=== PATIENT | male | born 1965 | race Caucasian/White ===

== ENCOUNTER 2017-08-27 19:04 | Emergency (ER) | payer BC ==
[2017-08-27 19:27] VITALS: RESP 18
[2017-08-27] MEDS ORDERED: SODIUM CHLORIDE 0.9% 1,000 ML IV STA (20:04)
--- NOTE | 2017-08-27 20:04 | ED ---
Abdominal Pain HPI - General Chief Complaint: Abdominal Pain Stated Complaint: Abd Pain Lap Band Time Seen by Provider: 08/27/17 19:38 Source: patient Mode of arrival: ambulatory Limitations: no limitations - History of Present Illness Initial Comments: [age] years old male comes in with the complaint that he feels a hot dog is stuck in his epigastric area, is status post lap banding back in [address] Vazquez performed the procedure this happened around 3:30 today he said he vomited 4 times denies any diarrhea denies any shortness of breath he is not drooling is able to swallow his saliva. No headaches no neck stiffness no chest pain or shortness of breath no abdominal pain he does feel something is stuck there - Related Data Allergies Allergy/AdvReac Type Severity Reaction Status Date / Time No Known Allergies Allergy Verified 08/27/17 19:24 Review of Systems ROS Statement: Those systems with pertinent positive or pertinent negative responses have been documented in the HPI. ROS Other: All systems not noted in ROS Statement are negative. Past Medical History Additional Past Medical History / Comment(s): tachycardia History of Any Multi-Drug Resistant Organisms: None Reported Past Surgical History: Appendectomy, Hernia Repair Additional Past Surgical History / Comment(s): lap band Past Psychological History: No Psychological Hx Reported Smoking Status: Current every day smoker Past Alcohol Use History: None Reported Past Drug Use History: None Reported General Exam - General Exam Comments Initial Comments: General: The patient is awake and alert, in no distress, and does not appear acutely ill. Skin: Skin is warm and dry and no rashes or lesions are noted. Eye: Pupils are equal, round and reactive to light, extra-ocular movements are intact; there is normal conjunctiva bilaterally. Ears, nose, mouth and throat: There are moist mucous membranes and no oral lesions. Neck: The neck is supple, there is no tenderness or JVD. Cardiovascular: There is a regular rate and rhythm. No murmur, rub or gallop is appreciated. Respiratory: To auscultation bilateral, no wheezing no rhonchi no distress respiratory wong noticed Gastrointestinal: Soft, non-distended, non-tender abdomen without masses or organomegaly noted. There is no rebound or guarding present. Bowel sounds are unremarkable. Back: There is no tenderness to palpation in the midline. There is no obvious deformity. Musculoskeletal: Normal ROM, no tenderness, There is no pedal edema. There is no calf tenderness or swelling. No cords were appreciated. Neurological: CN II-XII intact, Cranial nerves III through XII are intact. There are no obvious motor or sensory deficits. Coordination appears grossly intact. Speech is normal. Psychiatric: Cooperative, appropriate mood & affect, normal judgment. Limitations: no limitations Course Vital Signs 08/27/17 19:24 Temperature 97.5 F L Pulse Rate 73 Respiratory 18 Rate Blood Pressure 146/80 O2 Sat by Pulse 95 Oximetry I was able to get older Dr. Fajardo and Dr. Vazquez advised me to get some saline out Of the port or admit him to the hospital he his serum in the morning in the meantime patient felt that the food bolus passed he feels lot comfortable he was to go home. In the [address] Fajardo as a follow-up over the next one or 2 days. I'm agreeable with that he was advised to come back if symptoms get worse even tonight if he feels better and regardless she needs to see Dr. Fajardo or the next one or 2 days he coming to the Medical Decision Making - Lab Data Result diagrams: 08/27/17 20:13 08/27/17 20:13 Lab Results 08/27/17 08/27/17 Range/Units 20:13 20:13 WBC 8.1 (3.8-10.6) k/uL RBC 5.37 (4.30-5.90) m/uL Hgb 15.8 (13.0-17.5) gm/dL Hct 46.2 (39.0-53.0) % MCV 86.1 (80.0-100.0) fL MCH 29.5 (25.0-35.0) pg MCHC 34.3 (31.0-37.0) g/dL RDW 13.9 (11.5-15.5) % Plt Count 218 (150-450) k/uL Neutrophils % 64 % Lymphocytes % 25 % Monocytes % 6 % Eosinophils % 3 % Basophils % 0 % Neutrophils # 5.1 (1.3-7.7) k/uL Lymphocytes # 2.0 (1.0-4.8) k/uL Monocytes # 0.5 (0-1.0) k/uL Eosinophils # 0.2 (0-0.7) k/uL Basophils # 0.0 (0-0.2) k/uL Sodium 138 (137-145) mmol/L Potassium 4.7 (3.5-5.1) mmol/L Chloride 107 (98-107) mmol/L Carbon Dioxide 20 L (22-30) mmol/L Anion Gap 11 mmol/L BUN 12 (9-20) mg/dL Creatinine 0.66 (0.66-1.25) mg/dL Est GFR (CKD-EPI)AfAm >90 (>60 ml/min/1.73 sqM) Est GFR (CKD-EPI)NonAf >90 (>60 ml/min/1.73 sqM) Glucose 92 (74-99) mg/dL Calcium 9.1 (8.4-10.2) mg/dL Total Bilirubin 0.6 (0.2-1.3) mg/dL AST 19 (17-59) U/L ALT 28 (21-72) U/L Alkaline Phosphatase 57 (38-126) U/L Total Protein 6.7 (6.3-8.2) g/dL Albumin 4.0 (3.5-5.0) g/dL Amylase 59 (30-110) U/L Lipase 40 (23-300) U/L Disposition Clinical Impression: Abdominal pain Disposition: HOME SELF-CARE Condition: Good Instructions: Abdominal Pain (ED) Is patient prescribed a controlled substance at d/c from ED?: No Referrals: Álvaro Merrill MD [Primary Care Provider] - 1-2 days
[2017-08-27] MEDS ORDERED: DIAZEPAM 5 MG/ML 2 ML INJ IVP STA (20:32)
[2017-08-27] MEDS ORDERED: GLUCAGON 1 MG/ML VIAL IVP STA (20:32)
[2017-08-27 20:33] LABS: Basophils % (A) 0 %; Eosinophils # (A) 0.2 k/uL (0-0.7); Eosinophils % (A) 3 %; HCT 46.2 % (39.0-53.0); HGB 15.8 gm/dL (13.0-17.5); Lymphocytes % (A) 25 %; MCH 29.5 pg (25.0-35.0); MCHC 34.3 g/dL (31.0-37.0); MCV 86.1 fL (80.0-100.0); Mean Platelet Volume 7.6; Monocytes # (A) 0.5 k/uL (0-1.0); Monocytes % (A) 6 %; Neutrophils # (A) 5.1 k/uL (1.3-7.7); Neutrophils % (A) 64 %; Platelet Count 218 k/uL (150-450); RBC 5.37 m/uL (4.30-5.90); RDW 13.9 % (11.5-15.5); WBC 8.1 k/uL (3.8-10.6)
[2017-08-27 20:39] LABS: ALT 28 U/L (21-72); AST 19 U/L (17-59); Alkaline Phosphatase 57 U/L (38-126); Amylase 59 U/L (30-110); Anion Gap 11 mmol/L; Blood Urea Nitrogen 12 mg/dL (9-20); Calcium 9.1 mg/dL (8.4-10.2); Carbon Dioxide 20 mmol/L (22-30); Chloride 107 mmol/L (98-107); Glucose 92 mg/dL (74-99); Lipase 40 U/L (23-300); Potassium 4.7 mmol/L (3.5-5.1); Sodium 138 mmol/L (137-145); Total Bilirubin 0.6 mg/dL (0.2-1.3); Total Protein 6.7 g/dL (6.3-8.2)
[2017-08-27 20:58] VITALS: BP 142/80; PULSE 80; TEMP 98
== END 2017-08-27 20:58 | disposition home or self-care (01) ==
LOC: EC 19:04
DX: R10.9 Unspecified abdominal pain (principal); F17.200 Nicotine dependence, unspecified, uncomplicated; Z90.49 Acquired absence of other specified parts of digestive tract
CPT/HCPCS: 36415; 80053; 82150; 83690; 85025; 99284

== ENCOUNTER → 2021-04-19 | Outpatient (CLI) | payer OTHER ==
[2021-04-19 14:23] VITALS: BP 144/89; PULSE 112; RESP 20; TEMP 97.9; BMI 50.1
--- NOTE | 2021-04-19 14:51 | P.HPBAR ---
Bariatric H&P - History & Physicial H&P Date: 04/19/21 History & Physicial: Visit/CC: follow up Patient initial contact: Initial weight: Initial weight in pounds: Height: 5 ft 8 in Initial BMI: Last weight: Current weight: 149.685 kg Current weight in pounds: 330.00 Current BMI: 50.1 [place] body weight (based on NIH guidelines): 69.853 kg Excess body weight loss: The patient is a 55 year-old M who presents for Bariatric Assessment. Patient presents today for bridge follow. She's not been seen in many years. His current weight is 330 pounds. He recently had his LAP-BAND emptied due to dysphagia. He is interested in converting to a sleeve gastrectomy. Past Medical History Additional Past Medical History / Comment(s): tachycardia History of Any Multi-Drug Resistant Organisms: None Reported Past Surgical History: Appendectomy, Hernia Repair Additional Past Surgical History / Comment(s): lap band. hernia repair X2. Past Anesthesia/Blood Transfusion Reactions: No Reported Reaction Past Psychological History: No Psychological Hx Reported Smoking Status: Current some day smoker Past Alcohol Use History: None Reported Past Drug Use History: None Reported Surgical - Exam Vital Signs Temp Pulse Resp BP 97.9 F 112 H 20 144/89 04/19/21 14:16 04/19/21 14:16 04/19/21 14:16 04/19/21 14:16 - General well developed, well nourished, no distress - Eyes PERRL - ENT normal pinna - Neck no masses - Respiratory normal expansion - Cardiovascular Rhythm: regular - Abdomen Abdomen: soft, non tender Bariatric Assessment & Plan Plan: GERD and dysphagia with LAP-BAND. Patient will undergo EGD. I did discuss on the pros and cons of sleeve gastrectomy. He'll follow-up in the office after his EGD is performed. Bariatric Checklist Checklist: Plan: Checklist: EGD: 1. Hiatal hernia: 2. H. Pylori: HgbA1c: Vitamin D: Smoking: Current every day smoker Primary care physician referral: Dr. De La Cruz ([facility]) Psychiatry clearance: Cardiology clearance: Sleep study: Diet journal: VTE risk score: VTE risk level: Rehab needs at discharge:
== END | disposition home or self-care (01) ==
LOC: BARWHC3 13:58
PROVIDERS: ATTEND Surgery
DX: E66.01 Morbid (severe) obesity due to excess calories (principal); Z68.43 Body mass index [BMI] 50.0-59.9, adult
CPT/HCPCS: 99203

== ENCOUNTER → 2021-04-19 | Outpatient (CLI) | payer OTHER ==
--- NOTE | 2021-04-19 12:21 | FL ---
SINGLE CONTRAST BARIUM SWALLOW: CLINICAL HISTORY: 55-year-old male R13.10, dysphagia. Lap band emptied a few days ago with improveme nt in symptoms. TECHNIQUE: Single contrast exam performed with thin barium. Total fluoroscopy time: 22 seconds. Total images: 10. FINDINGS: Initial image shows satisfactory positioning of the lap band device. The patient swallowed oral contr ast without difficulty or delay. Esophageal peristalsis and motility are within normal limits. [place] roscopic banding device is noted to be in place and is appropriately positioned in proximal stomach, just below Gastroesophageal junction. There is good flow of contrast along the course of the lap ba nd without any significant restriction. IMPRESSION: No evidence for lap band prolapse or obstruction. No significant restriction across the lap band.
== END | disposition home or self-care (01) ==
LOC: RADUSWWP 11:10
PROVIDERS: ATTEND Surgery
DX: R13.10 Dysphagia, unspecified (principal)
CPT/HCPCS: 74220

== ENCOUNTER → 2021-10-25 | Outpatient (CLI) | payer OTHER ==
[2021-10-25 14:46] VITALS: BP 173/82; RESP 102; TEMP 97.7; BMI 55.2
--- NOTE | 2021-10-25 15:38 | P.HPBAR ---
Bariatric H&P - History & Physicial H&P Date: 10/25/21 History & Physicial: Visit/CC: lap band follow up Patient initial contact: Initial weight: Initial weight in pounds: Height: 5 ft 8 in Initial BMI: Last weight: Current weight: 164.654 kg Current weight in pounds: 363.00 Current BMI: 55.2 [place] body weight (based on NIH guidelines): 69.853 kg Excess body weight loss: The patient is a 56 year-old M who presents for Bariatric Assessment. Patient presents today for LAP-BAND adjustment. His cane 45 pounds last visit. Past Medical History Additional Past Medical History / Comment(s): tachycardia History of Any Multi-Drug Resistant Organisms: None Reported Past Surgical History: Appendectomy, Hernia Repair Additional Past Surgical History / Comment(s): lap band. hernia repair X2. Past Anesthesia/Blood Transfusion Reactions: No Reported Reaction Past Psychological History: No Psychological Hx Reported Smoking Status: Current some day smoker Past Alcohol Use History: None Reported Past Drug Use History: None Reported Surgical - Exam Vital Signs Temp Resp BP 97.7 F 102 H 173/82 10/25/21 14:41 10/25/21 14:41 10/25/21 14:41 - General well developed, well nourished, no distress - Eyes PERRL - ENT normal pinna - Neck no masses - Respiratory normal expansion - Cardiovascular Rhythm: regular - Abdomen Abdomen: soft, non tender Bariatric Assessment & Plan Plan: RBC. Patient's LAP-BAND was attempted to be adjusted. His port could not be accessed due to rotation the port. Patient was scheduled for revision of LAP- BAND port. Bariatric Checklist Checklist: Plan: Checklist: EGD: 1. Hiatal hernia: 2. H. Pylori: HgbA1c: Vitamin D: Smoking: Current every day smoker Primary care physician referral: Dr. De La Cruz ([facility]) Psychiatry clearance: Cardiology clearance: Sleep study: Diet journal: VTE risk score: VTE risk level: Rehab needs at discharge:
== END ==
LOC: BARWHC3 13:41
PROVIDERS: ATTEND Surgery
DX: Z46.51 Encounter for fitting and adjustment of gastric lap band (principal); F17.200 Nicotine dependence, unspecified, uncomplicated
CPT/HCPCS: 99213

== ENCOUNTER 2021-11-29 08:11 | Day surgery (SDC) | payer OTHER ==
[2021-11-25 15:39] VITALS: BMI 53.1
[~2021-11-29 08:11] MED LIST: DEXAMETHASONE SOD PHOSPHATE 4 MG/ML 1 ML VIAL IV ONE; HYDROmorphone 0.5 MG/0.5 ML SYRINGE IVP PRN; LACTATED RINGERS 1,000 ML IV SCH; ONDANSETRON 4 MG/2 ML VIAL IVP ONE; ceFAZolin 3 GM in SODIUM CHLORIDE 0.9% 100 ML IVPB PRN
[2021-11-29 09:05] LABS: Glucose,Whole Blood 104 mg/dL (70-110)
[2021-11-29 09:07] VITALS: RESP 16
--- NOTE | 2021-11-29 10:02 | P.GSHP ---
History of Present Illness H&P Date: 11/29/21 Chief Complaint: LAP-BAND port malfunction This a 56-year-old male who presents today for laparoscopic removal and replacement of LAP-BAND port. Patient has a port which is malfunctioning and is unable to be accessed. Past Medical History Past Medical History: Osteoarthritis (OA), Sleep Apnea/CPAP/BIPAP Additional Past Medical History / Comment(s): tachycardia,uses cpap,steroid injection September 2021 History of Any Multi-Drug Resistant Organisms: None Reported Past Surgical History: Appendectomy, Hernia Repair Additional Past Surgical History / Comment(s): lap band. hernia repair X2. Past Anesthesia/Blood Transfusion Reactions: No Reported Reaction Additional Past Anesthesia/Blood Transfusion Reaction / Comment(s): no hx blood transfusion Smoking Status: Former smoker - Past Family History Mother Family Medical History: No Reported History Brother(s) Family Medical History: Deep Vein Thrombosis (DVT) Medications and Allergies Home Medications Medication Instructions Recorded Confirmed Type Cholecalciferol (Vitamin D3) 100 mcg PO DAILY 04/19/21 11/29/21 History [Vitamin D3 (125 MCG = 5,000 IU)] Diclofenac Sodium [Voltaren 1 applic TOPICAL DIRECTED PRN 04/19/21 11/29/21 History Arthritis Pain 1% Gel] Gabapentin [Neurontin] 300 mg PO HS 04/19/21 11/29/21 History HYDROcodone/APAP 7.5-325MG [[place] 1 tab PO Q6HR PRN 04/19/21 11/29/21 History 7.5-325] Metoprolol Succinate [Toprol XL] 25 mg PO QAM 04/19/21 11/29/21 History Multivitamins, Thera [Multivitamin 1 tab PO DAILY 04/19/21 11/29/21 History (formulary)] Piroxicam 20 mg PO DAILY 04/19/21 11/29/21 History Oxybutynin ER [Ditropan Xl] 10 mg PO HS 11/25/21 11/29/21 History Allergies Allergy/AdvReac Type Severity Reaction Status Date / Time No Known Allergies Allergy Verified 11/29/21 09:08 Surgical - Exam Vital Signs Temp Pulse Resp BP Pulse Ox 97.6 F 86 16 154/86 96 11/29/21 08:57 11/29/21 08:57 11/29/21 08:57 11/29/21 08:57 11/29/21 08:57 - General well developed, well nourished, no distress - Eyes PERRL - ENT normal pinna - Neck no masses - Respiratory normal expansion - Cardiovascular Rhythm: regular - Abdomen Abdomen: soft, non tender Assessment and Plan Assessment: Morbid obesity, BMI 57 LAP-BAND port malfunction We'll perform laparoscopic removal and replacement of LAP-BAND port
[2021-11-29] MEDS ORDERED: GLYCOPYRROLATE 0.2 MG/ML 2 ML VIAL ONE (10:24)
[2021-11-29] MEDS ORDERED: ROCURONIUM 10 MG/ML (5 ML VIAL) IV ONE (10:24)
[2021-11-29] MEDS ORDERED: PROPOFOL 10 MG/ML 20 ML VIAL IV ONE (10:24)
[2021-11-29] MEDS ORDERED: LIDOCAINE 2% INJ 20 MG/ML (2 ML VIAL) ONE (10:24)
[2021-11-29] MEDS ORDERED: SUCCINYLCHOLINE CHLORIDE 200 MG/10 ML VIAL IV ONE (10:24)
[2021-11-29] MEDS ORDERED: MIDAZOLAM 2 MG/2 ML VIAL ONE (10:24)
[2021-11-29] MEDS ORDERED: NEOSTIGMINE 1 MG/ML 10 ML VIAL ONE (10:24)
[2021-11-29] MEDS ORDERED: fentaNYL (PF) 50 MCG/ML 2 ML AMP ONE (10:24)
[2021-11-29] MEDS ORDERED: BUPIVACAIN-EPI 0.25%-1:200,000 30 ML VIAL SQ ONE (11:06)
--- NOTE | 2021-11-29 11:30 | P.OP ---
Date of Procedure: 11/29/21 Preoperative Diagnosis: LAP-BAND port malfunction Postoperative Diagnosis: LAP-BAND port malfunction Procedure(s) Performed: Laparoscopic removal and replacement of LAP-BAND port Anesthesia: RACHEL Surgeon: Hitesh Hardin Estimated Blood Loss (ml): 5 Pathology: none sent Condition: stable Disposition: PACU Description of Procedure: The patient's placed on the operative table in the supine position. He received general endotracheal tube anesthesia. His abdomen was prepped and draped usual sterile fashion. The skin incision sites anesthetized with 1% local Xylocaine. The skin at the port site was incised and using blunt and sharp dissection with cautery the LAP-BAND port was dissected free from some taste tissues. The PEG tube was then cut. The LAP-BAND port was sent to pathology. Using a 5 mm optical trocar under direct visualization the. Cavity was entered. The abdomen was insufflated. After adequate insufflation a 10 mm trochars placed in the right epigastric area the PEG tube was then brought up in the temporal trocar site. The trochars withdrawn. LAP-BAND port was cut to the LAP-BAND PEG tube. The port was secured to the fascia using 0 Nurolon suture. 3 sutures were used to fixate the port. Once the port was fixated the port was flushed with saline. 3 mL of saline was instilled into the LAP-BAND system. There is no bleeding seen. Skin incision sites were closed with 3-0 Monocryl suture. Dermabond was applied. Patient top she will was sent to recovery room in stable condition.
[2021-11-29 11:34] VITALS: TEMP 97.8
[2021-11-29 12:37] VITALS: BP 147/84; PULSE 85
== END 2021-11-29 12:57 | disposition home or self-care (01) ==
LOC: OR 08:11
PROVIDERS: ATTEND Surgery
DX: T85.698A Other mechanical complication of other specified internal prosthetic devices, implants and grafts, initial encounter (principal); M19.90 Unspecified osteoarthritis, unspecified site; G47.33 Obstructive sleep apnea (adult) (pediatric); R00.0 Tachycardia, unspecified; Z99.89 Dependence on other enabling machines and devices; Z90.89 Acquired absence of other organs; Z98.890 Other specified postprocedural states; Z87.891 Personal history of nicotine dependence; Z83.2 Family history of diseases of the blood and blood-forming organs and certain disorders involving the immune mechanism; Z79.899 Other long term (current) drug therapy
CPT/HCPCS: 43773; C1751; J2250; J0330; J1100; J2710; J0690; J2405; J3010; J2704; J2001

== ENCOUNTER → 2021-12-13 | Outpatient (CLI) | payer OTHER ==
[2021-12-14 08:55] VITALS: BP 139/83; PULSE 82; TEMP 98.2; BMI 52.1
--- NOTE | 2021-12-28 12:29 | P.HPBAR ---
Bariatric H&P - History & Physicial H&P Date: 12/13/21 History & Physicial: Visit/CC: lap band follow up Patient initial contact: Initial weight: Initial weight in pounds: Height: 5 ft 8 in Initial BMI: Last weight: Current weight: 155.582 kg Current weight in pounds: 343.00 Current BMI: 52.1 [place] body weight (based on NIH guidelines): 69.853 kg Excess body weight loss: The patient is a 56 year-old M who presents for Bariatric Assessment. Patient resents today for LAP-BAND follow-up. He has lost presents weight in pounds since last visit. He is on minimal GERD. Past Medical History Past Medical History: Osteoarthritis (OA), Sleep Apnea/CPAP/BIPAP Additional Past Medical History / Comment(s): tachycardia,uses cpap,steroid injection September 2021 History of Any Multi-Drug Resistant Organisms: None Reported Past Surgical History: Appendectomy, Hernia Repair Additional Past Surgical History / Comment(s): lap band. hernia repair X2. lap band port replacement 11-29-21 Past Anesthesia/Blood Transfusion Reactions: No Reported Reaction Additional Past Anesthesia/Blood Transfusion Reaction / Comm: no hx blood transfusion Past Psychological History: No Psychological Hx Reported Smoking Status: Former smoker Past Alcohol Use History: None Reported Additional Past Alcohol Use History / Comment(s): quit smoking yrs ago, started smoking at age 11 Past Drug Use History: None Reported - Past Family History Mother Family Medical History: No Reported History Brother(s) Family Medical History: Deep Vein Thrombosis (DVT) Surgical - Exam Vital Signs Temp Pulse BP 98.2 F 82 139/83 12/13/21 14:41 12/13/21 14:41 12/13/21 14:41 - General well developed, no distress - Eyes PERRL - ENT normal pinna - Neck no masses - Respiratory normal expansion - Cardiovascular Rhythm: regular - Abdomen Abdomen: soft, non tender Bariatric Assessment & Plan Plan: Patient's GERD is minimal elevated observed. His weight loss has been excellent for the last month. Bariatric Checklist Checklist: Plan: Checklist: EGD: 1. Hiatal hernia: 2. H. Pylori: HgbA1c: Vitamin D: Smoking: Current every day smoker Primary care physician referral: Dr. De La Cruz ([facility] Psychiatry clearance: Cardiology clearance: Sleep study: Diet journal: VTE risk score: VTE risk level: Rehab needs at discharge:
== END | disposition home or self-care (01) ==
LOC: BARWHC3 14:17
PROVIDERS: ATTEND Surgery
DX: Z48.815 Encounter for surgical aftercare following surgery on the digestive system (principal); K21.9 Gastro-esophageal reflux disease without esophagitis
CPT/HCPCS: 99211

== ENCOUNTER → 2022-01-17 | Outpatient (CLI) | payer OTHER ==
[2022-01-17 14:11] VITALS: BP 161/84; PULSE 110; RESP 16; TEMP 98.3; BMI 55.3
--- NOTE | 2022-02-14 13:21 | P.HPBAR ---
Bariatric H&P - History & Physicial H&P Date: 01/17/22 History & Physicial: Visit/CC: band port f/u Patient initial contact: Initial weight: 199.581 kg Initial weight in pounds: 440.00 Height: 5 ft 8 in Initial BMI: 66.9 Last weight: Current weight: 165.108 kg Current weight in pounds: 364.00 Current BMI: 55.3 [place] body weight (based on NIH guidelines): 69.853 kg Excess body weight loss: 26.5% The patient is a 56 year-old M who presents for Bariatric Assessment. Patient presents today for bariatric follow-up. He's had a new port replaced. Patient is morbidly obese. His BMI is 55. Past Medical History Past Medical History: Osteoarthritis (OA), Sleep Apnea/CPAP/BIPAP Additional Past Medical History / Comment(s): tachycardia,uses cpap,steroid injection September 2021 History of Any Multi-Drug Resistant Organisms: None Reported Past Surgical History: Appendectomy, Hernia Repair Additional Past Surgical History / Comment(s): lap band. hernia repair X2. lap band port replacement 11-29-21 Past Anesthesia/Blood Transfusion Reactions: No Reported Reaction Additional Past Anesthesia/Blood Transfusion Reaction / Comm: no hx blood transfusion Past Psychological History: No Psychological Hx Reported Smoking Status: Former smoker Past Alcohol Use History: None Reported Additional Past Alcohol Use History / Comment(s): quit smoking yrs ago, started smoking at age 11 Past Drug Use History: None Reported - Past Family History Mother Family Medical History: No Reported History Brother(s) Family Medical History: Deep Vein Thrombosis (DVT) Surgical - Exam Vital Signs Temp Pulse Resp BP 98.3 F 110 H 16 161/84 01/17/22 14:08 01/17/22 14:08 01/17/22 14:08 01/17/22 14:08 - General well developed, well nourished, no distress - Eyes PERRL - ENT normal pinna, normal nares - Neck no masses - Respiratory normal expansion - Cardiovascular Rhythm: regular - Abdomen Abdomen: soft, non tender Bariatric Assessment & Plan Plan: Status post LAP-BAND port placement. Patient's BMI is still very high. He will have his band adjusted once his port site heals. Bariatric Checklist Checklist: Plan: Checklist: EGD: 1. Hiatal hernia: 2. H. Pylori: HgbA1c: Vitamin D: Smoking: Current every day smoker Primary care physician referral: Dr. De La Cruz ([facility]) Psychiatry clearance: Cardiology clearance: Sleep study: Diet journal: VTE risk score: VTE risk level: Rehab needs at discharge:
== END ==
LOC: BARWHC3 13:35
PROVIDERS: ATTEND Surgery
DX: Z48.815 Encounter for surgical aftercare following surgery on the digestive system (principal); Z98.84 Bariatric surgery status; E66.01 Morbid (severe) obesity due to excess calories; Z68.43 Body mass index [BMI] 50.0-59.9, adult; F17.200 Nicotine dependence, unspecified, uncomplicated
CPT/HCPCS: 99211

== ENCOUNTER → 2022-02-14 | Outpatient (CLI) | payer OTHER ==
[2022-02-14 14:01] VITALS: BP 135/87; PULSE 111; TEMP 98.5; BMI 55.4
--- NOTE | 2022-02-14 14:22 | P.HPBAR ---
Bariatric H&P - History & Physicial H&P Date: 02/14/22 History & Physicial: Visit/CC: lap band F/U Patient initial contact: Initial weight: 199.581 kg Initial weight in pounds: 440.00 Height: 5 ft 8 in Initial BMI: 66.9 Last weight: Current weight: 165.289 kg Current weight in pounds: 364.40 Current BMI: 55.4 [place] body weight (based on NIH guidelines): 69.853 kg Excess body weight loss: 26.4% The patient is a 56 year-old M who presents for Bariatric Assessment. She is requesting a fill of his LAP-BAND. Currently feels hungry. Past Medical History Past Medical History: Osteoarthritis (OA), Sleep Apnea/CPAP/BIPAP Additional Past Medical History / Comment(s): tachycardia,uses cpap,steroid injection September 2021 History of Any Multi-Drug Resistant Organisms: None Reported Past Surgical History: Appendectomy, Hernia Repair Additional Past Surgical History / Comment(s): lap band. hernia repair X2. lap band port replacement 11-29-21 Past Anesthesia/Blood Transfusion Reactions: No Reported Reaction Additional Past Anesthesia/Blood Transfusion Reaction / Comm: no hx blood transfusion Past Psychological History: No Psychological Hx Reported Smoking Status: Former smoker Past Alcohol Use History: None Reported Additional Past Alcohol Use History / Comment(s): quit smoking yrs ago, started smoking at age 11 Past Drug Use History: None Reported - Past Family History Mother Family Medical History: No Reported History Brother(s) Family Medical History: Deep Vein Thrombosis (DVT) Surgical - Exam Vital Signs Temp Pulse BP 98.5 F 111 H 135/87 02/14/22 13:57 02/14/22 13:57 02/14/22 13:57 - General well developed, well nourished, no distress - Eyes PERRL - ENT normal pinna - Neck no masses - Respiratory normal expansion - Cardiovascular Rhythm: regular - Abdomen Abdomen: soft, non tender Bariatric Assessment & Plan Plan: Patient LAP-BAND was just. He had 2 mL added to his band. He'll follow-up in 4 weeks. Bariatric Checklist Checklist: Plan: Checklist: EGD: 1. Hiatal hernia: 2. H. Pylori: HgbA1c: Vitamin D: Smoking: Current every day smoker Primary care physician referral: Dr. Veljackson ([place]) Psychiatry clearance: Cardiology clearance: Sleep study: Diet journal: VTE risk score: VTE risk level: Rehab needs at discharge:
== END ==
LOC: BARWHC3 13:48
PROVIDERS: ATTEND Surgery
DX: Z48.815 Encounter for surgical aftercare following surgery on the digestive system (principal); Z98.84 Bariatric surgery status; E66.01 Morbid (severe) obesity due to excess calories; Z68.43 Body mass index [BMI] 50.0-59.9, adult; F17.200 Nicotine dependence, unspecified, uncomplicated
CPT/HCPCS: 99212

== ENCOUNTER → 2022-04-18 | Outpatient (CLI) | payer OTHER ==
[2022-04-18 13:36] VITALS: BP 135/86; PULSE 110; TEMP 98.2; BMI 54.8
--- NOTE | 2022-04-18 15:00 | P.HPBAR ---
Bariatric H&P - History & Physicial H&P Date: 04/18/22 History & Physicial: Visit/CC: lap band follow up Patient initial contact: Initial weight: 199.581 kg Initial weight in pounds: 440.00 Height: 5 ft 8 in Initial BMI: 66.9 Last weight: Current weight: 163.747 kg Current weight in pounds: 361.00 Current BMI: 54.8 [place] body weight (based on NIH guidelines): 69.853 kg Excess body weight loss: 27.6% The patient is a 56 year-old M who presents for Bariatric Assessment. Patient resents today for bariatric follow-up. He has lost some weight. Patient states that he is in a good zone. He's had some minimal GERD. He is not washed to have a fill today. Past Medical History Past Medical History: Osteoarthritis (OA), Sleep Apnea/CPAP/BIPAP Additional Past Medical History / Comment(s): tachycardia,uses cpap,steroid injection September 2021 History of Any Multi-Drug Resistant Organisms: None Reported Past Surgical History: Appendectomy, Hernia Repair Additional Past Surgical History / Comment(s): lap band. hernia repair X2. lap band port replacement 11-29-21 Past Anesthesia/Blood Transfusion Reactions: No Reported Reaction Additional Past Anesthesia/Blood Transfusion Reaction / Comm: no hx blood transfusion Past Psychological History: No Psychological Hx Reported Smoking Status: Former smoker Past Alcohol Use History: None Reported Additional Past Alcohol Use History / Comment(s): quit smoking yrs ago, started smoking at age 11 Past Drug Use History: None Reported - Past Family History Mother Family Medical History: No Reported History Brother(s) Family Medical History: Deep Vein Thrombosis (DVT) Surgical - Exam Vital Signs Temp Pulse BP 98.2 F 110 H 135/86 04/18/22 13:32 04/18/22 13:32 04/18/22 13:32 - General well developed, well nourished, no distress - Abdomen Abdomen: soft, non tender Bariatric Assessment & Plan Plan: Is post LAP-BAND procedure. Patient's GERD is minimal and will be observed. He'll follow-up in 3 weeks. Bariatric Checklist Checklist: Plan: Checklist: EGD: 1. Hiatal hernia: 2. H. Pylori: HgbA1c: Vitamin D: Smoking: Current every day smoker Primary care physician referral: Dr. De La Cruz ([facility]) Psychiatry clearance: Cardiology clearance: Sleep study: Diet journal: VTE risk score: VTE risk level: Rehab needs at discharge:
== END ==
LOC: BARWHC3 12:57
PROVIDERS: ATTEND Surgery
DX: E66.01 Morbid (severe) obesity due to excess calories (principal); Z46.51 Encounter for fitting and adjustment of gastric lap band; K21.9 Gastro-esophageal reflux disease without esophagitis; Z68.43 Body mass index [BMI] 50.0-59.9, adult; F17.200 Nicotine dependence, unspecified, uncomplicated
CPT/HCPCS: 99211

== ENCOUNTER → 2022-06-06 | Outpatient (CLI) | payer OTHER ==
[2022-06-06 14:24] VITALS: BP 139/91; PULSE 114; TEMP 98.6; BMI 54.3
--- NOTE | 2022-06-07 09:51 | P.HPBAR ---
Bariatric H&P - History & Physicial H&P Date: 06/06/22 History & Physicial: Visit/CC: lap band Patient initial contact: Initial weight: 199.581 kg Initial weight in pounds: 440.00 Height: 5 ft 8 in Initial BMI: 66.9 Last weight: Current weight: 162.205 kg Current weight in pounds: 357.60 Current BMI: 54.3 [place] body weight (based on NIH guidelines): 69.853 kg Excess body weight loss: 28.8% The patient is a 57 year-old M who presents for Bariatric Assessment. Patient presents today for LAP-BAND follow-up. He has lost 4 pounds since his last visit. He's had some minimal GERD. Denies any significant dysphagia. Patient thinks using the green zone and does not requested fill. Past Medical History Past Medical History: Osteoarthritis (OA), Sleep Apnea/CPAP/BIPAP Additional Past Medical History / Comment(s): tachycardia,uses cpap,steroid injection September 2021 History of Any Multi-Drug Resistant Organisms: None Reported Past Surgical History: Appendectomy, Hernia Repair Additional Past Surgical History / Comment(s): lap band. hernia repair X2. lap band port replacement 11-29-21 Past Anesthesia/Blood Transfusion Reactions: No Reported Reaction Additional Past Anesthesia/Blood Transfusion Reaction / Comm: no hx blood transfusion Past Psychological History: No Psychological Hx Reported Smoking Status: Former smoker Past Alcohol Use History: None Reported Additional Past Alcohol Use History / Comment(s): quit smoking yrs ago, started smoking at age 11 Past Drug Use History: None Reported - Past Family History Mother Family Medical History: No Reported History Brother(s) Family Medical History: Deep Vein Thrombosis (DVT) Surgical - Exam Vital Signs Temp Pulse BP 98.6 F 114 H 139/91 06/06/22 14:19 06/06/22 14:19 06/06/22 14:19 - General well developed, well nourished, no distress - Eyes PERRL - ENT normal pinna - Neck no masses - Respiratory normal expansion - Cardiovascular Rhythm: regular - Abdomen Abdomen: soft, non tender Bariatric Assessment & Plan Plan: Resolving morbid obesity. Patient's GERD is minimal old observed. Follow-up in one month. Bariatric Checklist Checklist: Plan: Checklist: EGD: 1. Hiatal hernia: 2. H. Pylori: HgbA1c: Vitamin D: Smoking: Current every day smoker Primary care physician referral: Dr. De La Cruz ([facility]) Psychiatry clearance: Cardiology clearance: Sleep study: Diet journal: VTE risk score: VTE risk level: Rehab needs at discharge:
== END ==
LOC: BARWHC3 14:01
PROVIDERS: ATTEND Surgery
DX: E66.01 Morbid (severe) obesity due to excess calories (principal); M19.90 Unspecified osteoarthritis, unspecified site; G47.33 Obstructive sleep apnea (adult) (pediatric); Z99.89 Dependence on other enabling machines and devices; Z68.54 Body mass index [BMI] pediatric, 95th percentile for age to less than 120% of the 95th percentile for age; F17.210 Nicotine dependence, cigarettes, uncomplicated
CPT/HCPCS: 99211

== ENCOUNTER → 2022-09-05 | Outpatient (CLI) | payer OTHER ==
[2022-09-05 14:29] VITALS: BP 142/85; PULSE 91; TEMP 99.1; BMI 53.5
--- NOTE | 2022-09-26 12:03 | P.HPBAR ---
Bariatric H&P - History & Physicial H&P Date: 09/05/22 History & Physicial: Visit/CC: lap band Patient initial contact: Initial weight: 199.581 kg Initial weight in pounds: 440.00 Height: 5 ft 8 in Initial BMI: 66.9 Last weight: Current weight: 159.665 kg Current weight in pounds: 352.00 Current BMI: 53.5 [place] body weight (based on NIH guidelines): 69.853 kg Excess body weight loss: 30.7% The patient is a 57 year-old M who presents for Bariatric Assessment. This is a 57-year-old male presents today for bariatric follow-up. Patient has history of GERD. He has had appears sleeve gastrectomy. His current weight is 352 pounds. Past Medical History Past Medical History: Osteoarthritis (OA), Sleep Apnea/CPAP/BIPAP Additional Past Medical History / Comment(s): tachycardia,uses cpap,steroid injection September 2021 History of Any Multi-Drug Resistant Organisms: None Reported Past Surgical History: Appendectomy, Bariatric Surgery, Hernia Repair Additional Past Surgical History / Comment(s): lap band. hernia repair X2. lap band port replacement 11-29-21 Past Anesthesia/Blood Transfusion Reactions: No Reported Reaction Additional Past Anesthesia/Blood Transfusion Reaction / Comm: no hx blood transfusion Past Psychological History: No Psychological Hx Reported Smoking Status: Former smoker Past Alcohol Use History: None Reported Additional Past Alcohol Use History / Comment(s): quit smoking yrs ago, started smoking at age 11 Past Drug Use History: None Reported - Past Family History Mother Family Medical History: No Reported History Brother(s) Family Medical History: Deep Vein Thrombosis (DVT) Surgical - Exam Vital Signs Temp Pulse BP 99.1 F 91 142/85 09/05/22 14:26 09/05/22 14:26 09/05/22 14:26 - General well developed, well nourished, no distress - Eyes PERRL - ENT normal pinna - Neck no masses - Respiratory normal expansion - Cardiovascular Rhythm: regular - Abdomen Abdomen: soft, non tender Bariatric Assessment & Plan Plan: Status post sleeve gastrectomy. Patient's GERD is minimal will be observed. He'll follow-up in 4 weeks. Bariatric Checklist Checklist: Plan: Checklist: EGD: 1. Hiatal hernia: 2. H. Pylori: HgbA1c: Vitamin D: Smoking: Current every day smoker Primary care physician referral: Dr. De La Cruz ([facility]) Psychiatry clearance: Cardiology clearance: Sleep study: Diet journal: VTE risk score: VTE risk level: Rehab needs at discharge:
== END ==
LOC: BARWHC3 14:04
PROVIDERS: ATTEND Surgery
DX: K21.9 Gastro-esophageal reflux disease without esophagitis (principal); E66.01 Morbid (severe) obesity due to excess calories; M19.90 Unspecified osteoarthritis, unspecified site; F17.200 Nicotine dependence, unspecified, uncomplicated; Z99.89 Dependence on other enabling machines and devices; Z98.84 Bariatric surgery status; Z86.79 Personal history of other diseases of the circulatory system; Z68.43 Body mass index [BMI] 50.0-59.9, adult; Z48.815 Encounter for surgical aftercare following surgery on the digestive system
CPT/HCPCS: 99211

== ENCOUNTER → 2023-01-02 | Outpatient (CLI) | payer OTHER ==
[2023-01-02 08:59] VITALS: BP 148/76; PULSE 109; TEMP 98.5; BMI 54.7
--- NOTE | 2023-01-09 14:39 | P.HPBAR ---
Bariatric H&P - History & Physicial H&P Date: 01/02/23 History & Physicial: Visit/CC: lap band Patient initial contact: Initial weight: 199.581 kg Initial weight in pounds: 440.00 Height: 5 ft 8 in Initial BMI: 66.9 Last weight: Current weight: 163.293 kg Current weight in pounds: 360.00 Current BMI: 54.7 [place] body weight (based on NIH guidelines): 69.853 kg Excess body weight loss: 27.9% The patient is a 57 year-old M who presents for Bariatric Assessment. patient presents today for bariatric follow-up. He is requesting a fill of his band. He is currently hungry. Past Medical History Past Medical History: Osteoarthritis (OA), Sleep Apnea/CPAP/BIPAP Additional Past Medical History / Comment(s): tachycardia,uses cpap,steroid injection September 2021 History of Any Multi-Drug Resistant Organisms: None Reported Past Surgical History: Appendectomy, Bariatric Surgery, Hernia Repair Additional Past Surgical History / Comment(s): lap band. hernia repair X2. lap band port replacement 11-29-21 Past Anesthesia/Blood Transfusion Reactions: No Reported Reaction Additional Past Anesthesia/Blood Transfusion Reaction / Comm: no hx blood transfusion Past Psychological History: No Psychological Hx Reported Smoking Status: Former smoker Past Alcohol Use History: None Reported Additional Past Alcohol Use History / Comment(s): quit smoking yrs ago, started smoking at age 11 Past Drug Use History: None Reported - Past Family History Mother Family Medical History: No Reported History Brother(s) Family Medical History: Deep Vein Thrombosis (DVT) Surgical - Exam Vital Signs Temp Pulse BP 98.5 F 109 H 148/76 01/02/23 08:55 01/02/23 08:55 01/02/23 08:55 - General well developed, well nourished, no distress - Eyes PERRL - Abdomen Abdomen: soft, non tender Bariatric Assessment & Plan Plan: Patient's Lap-Band was adjusted. He had 0.5 cc at the band. He will follow- up in 4 weeks. Bariatric Checklist Checklist: Plan: Checklist: EGD: 1. Hiatal hernia: 2. H. Pylori: HgbA1c: Vitamin D: Smoking: Current every day smoker Primary care physician referral: Dr. De La Cruz ([place]) Psychiatry clearance: Cardiology clearance: Sleep study: Diet journal: VTE risk score: VTE risk level: Rehab needs at discharge:
== END ==
LOC: BARWHC3 08:14
PROVIDERS: ATTEND Surgery
DX: E66.01 Morbid (severe) obesity due to excess calories (principal); M19.90 Unspecified osteoarthritis, unspecified site; G47.30 Sleep apnea, unspecified; Z46.51 Encounter for fitting and adjustment of gastric lap band; Z98.84 Bariatric surgery status; Z68.43 Body mass index [BMI] 50.0-59.9, adult; Z87.891 Personal history of nicotine dependence
CPT/HCPCS: 99212

== ENCOUNTER → 2023-04-24 | Outpatient (CLI) | payer OTHER ==
[2023-04-24 09:19] VITALS: BP 156/79; PULSE 99; TEMP 98.2; BMI 52.7
--- NOTE | 2023-05-08 15:06 | P.HPBAR ---
Bariatric H&P - History & Physicial H&P Date: 04/24/23 History & Physicial: Visit/CC: lap band Patient initial contact: Initial weight: 199.581 kg Initial weight in pounds: 440.00 Height: 5 ft 8 in Initial BMI: 66.9 Last weight: Current weight: 157.26 kg Current weight in pounds: 346.70 Current BMI: 52.7 [place] body weight (based on NIH guidelines): 69.853 kg Excess body weight loss: 32.6% The patient is a 58 year-old M who presents for Bariatric Assessment. Patient presents today for bright follow-up. He is lost 14 pounds since last visit. He had some minimal gerd. Past Medical History Past Medical History: Osteoarthritis (OA), Sleep Apnea/CPAP/BIPAP Additional Past Medical History / Comment(s): tachycardia,uses cpap,steroid injection September 2021 History of Any Multi-Drug Resistant Organisms: None Reported Past Surgical History: Appendectomy, Bariatric Surgery, Hernia Repair Additional Past Surgical History / Comment(s): lap band. hernia repair X2. lap band port replacement 11-29-21 Past Anesthesia/Blood Transfusion Reactions: No Reported Reaction Additional Past Anesthesia/Blood Transfusion Reaction / Comm: no hx blood transfusion Past Psychological History: No Psychological Hx Reported Smoking Status: Former smoker Past Alcohol Use History: None Reported Additional Past Alcohol Use History / Comment(s): quit smoking yrs ago, started smoking at age 11 Past Drug Use History: None Reported - Past Family History Mother Family Medical History: No Reported History Brother(s) Family Medical History: Deep Vein Thrombosis (DVT) Surgical - Exam Vital Signs Temp Pulse BP 98.2 F 99 156/79 04/24/23 08:47 04/24/23 08:47 04/24/23 08:47 - General well developed, well nourished, no distress - Eyes PERRL - ENT normal pinna - Neck no masses - Respiratory normal expansion - Abdomen Abdomen: soft, non tender Bariatric Assessment & Plan Plan: Patient is an excellent weight loss. This gerd is minimal will be observed. He will follow-up in 4 weeks. Bariatric Checklist Checklist: Plan: Checklist: EGD: 1. Hiatal hernia: 2. H. Pylori: HgbA1c: Vitamin D: Smoking: Current every day smoker Primary care physician referral: Dr. Veljackson ([place]) Psychiatry clearance: Cardiology clearance: Sleep study: Diet journal: VTE risk score: VTE risk level: Rehab needs at discharge:
== END ==
LOC: BARWHC3 08:20
PROVIDERS: ATTEND Surgery
DX: K21.9 Gastro-esophageal reflux disease without esophagitis (principal); M19.90 Unspecified osteoarthritis, unspecified site; G47.30 Sleep apnea, unspecified; Z98.84 Bariatric surgery status; Z87.891 Personal history of nicotine dependence; Z86.79 Personal history of other diseases of the circulatory system
CPT/HCPCS: 99211

== ENCOUNTER → 2023-06-19 | Outpatient (CLI) | payer OTHER ==
[2023-06-19 10:33] VITALS: BP 147/94; PULSE 105; TEMP 98.4; BMI 49.6
--- NOTE | 2023-06-20 07:34 | P.HPBAR ---
Bariatric H&P - History & Physicial H&P Date: 06/19/23 History & Physicial: Visit/CC: lap band F/U Patient initial contact: Initial weight: 199.581 kg Initial weight in pounds: 440.00 Height: 5 ft 8 in Initial BMI: 66.9 Last weight: Current weight: 147.871 kg Current weight in pounds: 326.00 Current BMI: 49.6 [place] body weight (based on NIH guidelines): 69.853 kg Excess body weight loss: 39.8% The patient is a 58 year-old M who presents for Bariatric Assessment.patient resents today for Babariatric follow-upll. He's had complaints of GERD. Patient's lost over 20 pounds last visit. He feels well overall. Past Medical History Past Medical History: Osteoarthritis (OA), Sleep Apnea/CPAP/BIPAP Additional Past Medical History / Comment(s): tachycardia,uses cpap,steroid injection September 2021 History of Any Multi-Drug Resistant Organisms: None Reported Past Surgical History: Appendectomy, Bariatric Surgery, Hernia Repair Additional Past Surgical History / Comment(s): lap band. hernia repair X2. lap band port replacement 11-29-21 Past Anesthesia/Blood Transfusion Reactions: No Reported Reaction Additional Past Anesthesia/Blood Transfusion Reaction / Comm: no hx blood transfusion Past Psychological History: No Psychological Hx Reported Smoking Status: Former smoker Past Alcohol Use History: None Reported Additional Past Alcohol Use History / Comment(s): quit smoking yrs ago, started smoking at age 11 Past Drug Use History: None Reported - Past Family History Mother Family Medical History: No Reported History Brother(s) Family Medical History: Deep Vein Thrombosis (DVT) Surgical - Exam Vital Signs Temp Pulse BP 98.4 F 105 H 147/94 06/19/23 09:58 06/19/23 09:58 06/19/23 09:58 - General well developed, no distress - Eyes PERRL - ENT normal pinna - Neck no masses - Respiratory normal expansion - Cardiovascular Rhythm: regular - Abdomen Abdomen: soft, non tender Bariatric Assessment & Plan Plan: patient is doing well from weight loss standpoint. His GERD is minimal will be observed. He'll follow-up in 4 weeks. Bariatric Checklist Checklist: Plan: Checklist: EGD: 1. Hiatal hernia: 2. H. Pylori: HgbA1c: Vitamin D: Smoking: Current every day smoker Primary care physician referral: Dr. De La Cruz ([facility]) Psychiatry clearance: Cardiology clearance: Sleep study: Diet journal: VTE risk score: VTE risk level: Rehab needs at discharge:
== END ==
LOC: BARWHC3 09:29
PROVIDERS: ATTEND Surgery
DX: K21.9 Gastro-esophageal reflux disease without esophagitis (principal); Z87.891 Personal history of nicotine dependence; Z98.84 Bariatric surgery status
CPT/HCPCS: 99211

== ENCOUNTER → 2023-10-09 | Outpatient (CLI) | payer OTHER ==
[2023-10-09 11:00] VITALS: BP 164/89; PULSE 92; RESP 14; TEMP 98; BMI 52.6
--- NOTE | 2023-10-09 15:58 | P.HPBAR ---
Bariatric H&P - History & Physicial H&P Date: 10/09/23 History & Physicial: Visit/CC: follow up Patient initial contact: Initial weight: 199.581 kg Initial weight in pounds: 440.00 Height: 5 ft 8 in Initial BMI: 66.9 Last weight: Current weight: 156.943 kg Current weight in pounds: 346.00 Current BMI: 52.6 [place] body weight (based on NIH guidelines): 69.853 kg Excess body weight loss: 32.8% The patient is a 58 year-old M who presents for Bariatric Assessment. Patient presents today for bariatric follow-up. Patient states he is gaining weight due to poor dietary habits. He has had some improvement. Past Medical History Past Medical History: Osteoarthritis (OA), Sleep Apnea/CPAP/BIPAP Additional Past Medical History / Comment(s): tachycardia,uses cpap,steroid injection September 2021 History of Any Multi-Drug Resistant Organisms: None Reported Past Surgical History: Appendectomy, Bariatric Surgery, Hernia Repair Additional Past Surgical History / Comment(s): lap band. hernia repair X2. lap band port replacement 11-29-21 Past Anesthesia/Blood Transfusion Reactions: No Reported Reaction Additional Past Anesthesia/Blood Transfusion Reaction / Comm: no hx blood transfusion Smoking Status: Former smoker - Past Family History Mother Family Medical History: No Reported History Brother(s) Family Medical History: Deep Vein Thrombosis (DVT) Surgical - Exam Vital Signs Temp Pulse Resp BP 98.0 F 92 14 164/89 10/09/23 10:23 10/09/23 10:23 10/09/23 10:23 10/09/23 10:23 - General Vital signs appear stable. Abdomen soft nontender Bariatric Assessment & Plan Plan: Patient's gerd is minimal will be observed. He will follow-up in 8 weeks. Bariatric Checklist Checklist: Plan: Checklist: EGD: 1. Hiatal hernia: 2. H. Pylori: HgbA1c: Vitamin D: Smoking: Current every day smoker Primary care physician referral: Dr. De La Cruz ([facility]) Psychiatry clearance: Cardiology clearance: Sleep study: Diet journal: VTE risk score: VTE risk level: Rehab needs at discharge:
== END ==
LOC: BARWHC3 10:14
PROVIDERS: ATTEND Surgery
DX: Z09 Encounter for follow-up examination after completed treatment for conditions other than malignant neoplasm (principal); K21.9 Gastro-esophageal reflux disease without esophagitis; E66.01 Morbid (severe) obesity due to excess calories; Z87.891 Personal history of nicotine dependence; Z98.84 Bariatric surgery status; Z68.43 Body mass index [BMI] 50.0-59.9, adult
CPT/HCPCS: 99211